=== PATIENT | male | born 1985 | race Caucasian/White ===

== ENCOUNTER 2017-12-30 18:37 | Emergency (ER) | payer OTHER ==
[~2017-12-30] VITALS: Ht 177.8 cm; Wt 93.0 kg
--- NOTE | 2017-12-30 18:55 | NUR ---
PT IS IN ROOM #2A. DR HAGER EVALUATED THE PT.
--- NOTE | 2017-12-30 19:22 | NUR ---
Patient discharged to home in stable conditon. Written and verbal after care instructions given. Patient verbalizes understanding of instructions. Patient able to ambulate unassisted with steady gait. Patient left with all personal belongings.
[2017-12-30 19:30] VITALS: BP 126/84
== END 2017-12-30 19:22 | disposition home or self-care (01) ==
LOC: ER 18:41
DX: M54.31 Sciatica, right side (principal); F17.200 Nicotine dependence, unspecified, uncomplicated
CPT/HCPCS: A4663